=== PATIENT | female | born 2000 | race Caucasian/White ===

== ENCOUNTER 2025-07-19 13:03 | Outpatient (AMB) | payer MEDICAID, SELFPAY ==
[2025-07-19 13:22] VITALS: BP 120/79; PULSE 69; RESP 14; TEMP 36.4; O2SAT 98; BMI 32.9
--- NOTE | 2025-07-19 13:22 | AMB.OBINITIA ---
Vital Signs 07/19/25 13:22 Height 1.6 m Height Method Stated Weight 84.368 kg Weight Measurement Method Standing Scale BMI 32.9 BP 120/79 Blood Pressure Source Automatic Cuff Blood Pressure Location Left Upper Arm Position Sitting Respiration 14 Pulse 69 Pulse Source Monitor Temp 97.6 F Temp Source Oral Pulse Oximetry (%) 98 Oxygen Delivery Method Room Air Allergies/Home Meds Allergies & Medications Allergies NKA* Allergy (Uncoded 07/19/25 13:23) Medication Reconciliation No Known Home Medications 07/19/25 [History Confirmed 07/19/25] Intake Visit Data Collection New Patient or Established: Established Patient (seen at [facility] within 3 years) Reason for Visit:: INITIAL CARE Seen by Clinical Staff ONLY (RN/MA): No Equipment Man Required: No Do You Feel Safe at Home: Yes Authorities Contacted: N/A PCP or OBGYN visit in last 3 months: Yes Hx Now: Yes Are you currently on any form of Control: No Last menstrual period: 02/11/25 Pain Present Currently: No Pain Scale Used: Rodriguez-Brewer/Numerical Pain scale:: 0 Smoking Status Smoking Status: Never smoker Immunizations Flu Vaccine in the Last 12 Months: No Flu Vaccine Exclusion Criteria: No Exclusion Criteria Questionnaires Covid-19 Vaccine Questionnaire Has patient been vacinated for Covid-19 Have you been vacinated for Covid-19: Yes PHQ-9 PHQ-2 Over the last 2 weeks, how often have you been bothered by any of the following problems? 1. Little interest or pleasure in doing things: not at all 2. Feeling down, depressed, or hopeless: not at all Total score: 0 PHQ-9 3. Trouble falling or staying asleep, or sleeping too much: Not at all 4. Feeling tired or having little energy: Not at all 5. Poor appetite or overeating: Not at all 6. Feeling bad about yourself - or that you are a failure or have let yourself or your family down: Not at all 7. Trouble concentrating on things, such as reading the newspaper or watching television: Not at all 8. Moving or speaking so slowly that other people could have noticed? - Or the opposite - being so fidgety or restless that you have been moving around a lot more than usual: not at all 9. Thoughts that you would be better off or of hurting yourself in some way: Not at all Total score: 0 Source: Developed by Drs. Matias Klein, Kimmie Bernstein, Antwan Ayala and colleagues, with an educational russell from [employer]. Depression screen completed yes Social History Living Situation History Marital Status: Lives With: Family Housing: House Tobacco History Smoking Status: Never smoker Second Hand Smoke Exposure: No Alcohol History Alcohol Intake: Former Alcohol Intake Frequency: holidays/special occasions only Domestic Abuse History Do You Feel Safe at Home: Yes History of Present Illness HPI Narrative 25-year-old 1 para 0 for OB transfer. Patient initially was seen in [facility] care. Her first visit was at 8 weeks. Last. February 11, 2025. This gave EDC of November 18, 2025. Patient's first ultrasound was with Dr. Vazquez. Ultrasound May 28, 2025. Patient 12 weeks and 4 days. This changes EDC to December 06, 2025. Patient has not had any problems with the except for some morning sickness. Denies social habits. Denies surgery. Denies chronic illness. She has no complaints. And movement is light. She has labs that were drawn her AFP was negative. NIPT negative. Cystic fibrosis screen was negative and her spinal muscular atrophy was negative. Patient is O+, antibody screen negative, RPR nonreactive, rubella immune, hepatitis B negative, hep C negative, HIV negative, GC and Chlamydia were negative. Urine culture was negative and drug screen negative as well. HEALTH INFORMATION PROVIDER: Past Medical History Past Medical History: No Hx Renal Disease, No Hx Diabetes Mellitus Type 1 and No Hx Diabetes Mellitus Type 2 OB Initial Visit OB Flowsheet OB Flowsheet Initial Weight: Not Recorded Date <del>?</del> EGA Weight BP Alb Glu CTX Pres Fundal ht FHR Mov Dilation Station Effacement Hx Notes Visit Note 07/19/25 <del>?</del> 20w 0d 84.368 kg 120/79 absent unknown 20 145 active 25-year-old 1 para 0 for OB/transfer. Patient initially seen at [facility]. Records are with her. Denies leaking, bleeding, contractions. Reports light movement. Patient scheduled for maternal- medicine sono in 1 week. Discussed SAB precautions. Continue prenatals. Return a week OB check Menstrual History Menstrual reliability: definite Flow: normal Menstrual regularity: regular Monthly: Yes Age at menarche: 10 On control pills at conception: No Associated symptoms (LMP): Reports fatigue OB History : 1 Infection History & Risk Evaluation History of STDs: chlamydia (IN 2019) Genetic Screening & History Genetic Screening/Teratology Counseling - Includes patient, baby's father, or anyone in either family with: 1. Patient's age 35 years or older as of estimated date of delivery: No 2. Thalassemia (Samoan, Cambodian, Mediterranean, or Background); MCV less than 80: No 3. Neural Tube Defect (Meningomyelocele, Spina Bifida, or Anencephaly): No 4. Congenital Heart Defect: No 5. Down Syndrome: No 6. Mateusz-Sachs (Ashkenazi Adventist, Cajun, Beninese Dominican): No 7. Kylee Disease (Ashkenazi Adventist): No 8. Familial Dysautonomia (Ashkenazi Adventist): No 9. Sickle Cell Disease or Trait (): No 10. Hemophilia or other blood disorders: No 11. Muscular Dystrophy: No 12. Cystic Fibrosis: No 13. Calcasieu's Chorea: No 14. Mental Retardation/Autism: No 15. Other inherited genetic or chromosomal disorder: No 16. Maternal Metabolic Disorder (EG,TYPE 1 Diabetes, PKU): No 17. Patient or baby's father had a child with defects not listed above: No 18. Recurrent loss or a stillbirth: No 19. Medications (including supplements, vitamins, herbs or otc drugs)/illicit/recreational drugs/alcohol since last menstrual period: No 20. Any other: No Infection History 1. Live with someone with TB or exposed to TB: No 2. Rash or viral illness since last menstrual period: No 3. Hepatitis B,C: No Other (see comments) Source: [employer] Review of Systems Review of Systems Systems Reviewed: All systems reviewed, normal except as documented Constitutional Constitutional: Reports fatigue Endocrine Endocrine: Reports fatigue Exam General Limitations: no limitations General Appearance: alert, in no apparent distress, comfortable, cooperative, healthy appearing, well developed and well groomed Head Head exam: atraumatic, normocephalic and normal inspection ENT ENT exam: Present normal exam, normal oropharynx and mucous membranes moist Chest Chest inspection: Present normal inspection and symmetric chest wall rise Resp Respiratory exam: Present normal lung sounds bilaterally Card Cardiovascular exam: Present regular rate, normal rhythm and normal heart sounds Abdominal Abdominal exam: Present soft and normal bowel sounds Psych Psychiatric exam: Present normal affect and normal mood Office Procedures OBC Clinic LOC & Office Proc's Nursing/Assessment Patient Status: Established Patient OB Clinic Nursing Assessment: Medication Reconciliation, Update PMH in EMR and Vital Signs OB Clinic Coordination of Care: Complex Care and Chronic Disease 1-5, Consent,records obtained, informed consent, Education Simp Pt/Fam, 1 Ins Authorization, Lab and Imaging orders, Results/Orders obtained and Staff clarify orders Special Needs: Heart tones Established Patient Charge Established Patient Point Assignment: 150 Established Patient Point Charge: EP Level 4 (120-155) Assessment & Plan Diagnosis / Problem List (1) Encounter for supervision of high risk in second trimester, antepartum: Status: Acute Plan Follow-up with maternal- medicine for anatomy scan in a week. Discussed labor precautions. Continue prenatals. Increase fluids. Return in 4 weeks OB check Additional Plan Follow Up: 4 Weeks (obc)
== END 2025-07-19 13:45 | disposition home or self-care (01) ==
PROVIDERS: Supervising Provider Advanced Practice Midwife; Visit Provider Advanced Practice Midwife
DX: O09.92 Supervision of high risk pregnancy, unspecified, second trimester (principal); Z3A.20 20 weeks gestation of pregnancy
CPT/HCPCS: 99214; G0463

== ENCOUNTER 2025-08-17 13:59 | Outpatient (AMB) | payer MEDICAID, SELFPAY ==
--- NOTE | 2025-08-17 14:29 | OBCLNT_ITS ---
Vital Signs 08/17/25 14:30 Height 1.6 m Height Method Stated Weight 87.657 kg Weight Measurement Method Standing Scale BMI 34.2 BP 108/69 Blood Pressure Source Automatic Cuff Blood Pressure Location Right Upper Arm Position Sitting Respiration 18 Pulse 82 Pulse Source Monitor Temp 97.9 F Temp Source Temporal Artery Scan Pulse Oximetry (%) 97 Oxygen Delivery Method Room Air Allergies/Home Meds Allergies & Medications Allergies NKA* Allergy (Uncoded 08/17/25 14:31) Medication Reconciliation No Known Home Medications 07/19/25 [History Confirmed 08/17/25] Immunizations Immunizations Flu Vaccine in the Last 12 Months: No Flu Vaccine Exclusion Criteria: No Exclusion Criteria Care OB Visit Log OB Flowsheet Initial Weight: Not Recorded Date -?-?-?-?-?-?-?-?-?-?-?-?- EGA Weight BP Alb Glu CTX Pres Fundal ht FHR Mov Dilation Station Effacement Hx Notes Visit Note 07/19/25 -?-?-?-?-?-?-?-?-?-?-?-?- 20w 0d 84.368 kg 120/79 absent unknown 20 145 active 25-year-old 1 para 0 for OB/transfer. Patient initially seen at [facility]. Records are with her. Denies leaking, bleeding, contractions. Reports light movement. Patient schedule d for maternal- medicine sono in 1 week. Discussed SAB precautions. Continue prenatals. Return a week OB check 08/17/25 -?-?-?-?-?-?-?-?-?-?-?-?- 24w 1d 87.657 kg 108/69 absent unknown 24 145 active Reports good movement. Denies leaking or bleeding. Denies contractions. Reports good movement. Denies leaking or bleeding. Denies contractions. She is a 3 para 1 complains of severe sciatic pain patient is having difficulty sitting for long periods of time. Patient reports that she has jury duty coming in a week Schedule third trimester labs. Discussed labor precautions. Increase fluids. Continue prenatals. Return in 4 weeks OB check and will do a growth sono at 32 weeks AMMY Calculator Estimated Delivery Date Method Current WG Current Estimate 12/06/25 Ultrasound #1 24w 1d Other Estimates 11/18/25 LMP (Uncertain) 26w 5d 12/06/25 Ultrasound #2 24w 1d 12/06/25 Manual 24w 1d final ammy; 12/06, efw: 62% Notes Visit Date: 07/19/25 Last Updated by: Flor Hong CNM 25 yo . 1st sono at 12w4 on 05/28/25. EDC is 12/06/25. O+,abs-,rpr;;nr, rub imm, hbsag-, hiv-, HC-, GC/CT-, . UA-,UT-, NIPT/AFP and carrier screen- Office Procedures OBC Clinic LOC & Office Proc's Nursing/Assessment Patient Status: Established Patient OB Clinic Nursing Assessment: Medication Reconciliation, Update PMH in EMR and Vital Signs OB Clinic Coordination of Care: Complex Care and Chronic Disease 1-5, Education Complex Pt/Fam, Consent,records obtained, informed consent, Lab and Imaging orders, Results/Orders obtained and Staff clarify orders Special Needs: Heart tones Established Patient Charge Established Patient Point Assignment: 140 Established Patient Point Charge: EP Level 4 (120-155) Assessment & Plan Diagnosis / Problem List (1) Encounter for supervision of high risk in second trimester, antepartum: Status: Acute Plan Comfort measures for sciatic pain. Discussed backache and heat. Third trimester labs given to patient. Discussed labor precautions. Increase fluids. Return in 4 weeks OB check Additional Plan Follow Up: 4 Weeks (obc)
[2025-08-17 14:30] VITALS: BP 108/69; PULSE 82; RESP 18; TEMP 36.6; O2SAT 97; BMI 34.2
== END 2025-08-17 14:52 | disposition home or self-care (01) ==
LOC: HODSOBC 13:59
PROVIDERS: Supervising Provider Advanced Practice Midwife; Visit Provider Advanced Practice Midwife
DX: O09.892 Supervision of other high risk pregnancies, second trimester (principal); O99.891 Other specified diseases and conditions complicating pregnancy; M54.40 Lumbago with sciatica, unspecified side; Z3A.24 24 weeks gestation of pregnancy
CPT/HCPCS: 99214; G0463

== ENCOUNTER → 2025-08-31 | Outpatient (CLI) | payer MEDICAID, SELFPAY ==
[2025-08-31 14:27] LABS: Basophils # (Auto) 0.0 Thou/mm3 (0.0-0.2); Basophils % (Auto) 0 % (0-2.5); Eosinophils # (Auto) 0.1 Thou/mm3 (0.0-0.5); Eosinophils % (Auto) 1 % (0-10); Hematocrit 32.1 % (36.0-46.0); Hemoglobin 10.9 g/dL (12.0-16.0); Immature Granulocytes Auto 0.06 Thou/mm3 (0.00-0.00); Lymphocytes # (Auto) 1.7 Thou/mm3 (1.0-4.8); Lymphocytes % (Auto) 21 % (10-50); Mean Corpuscular HGB Conc 34.0 g/dl (31.0-37.0); Mean Corpuscular Hemoglobin 29.5 pg (25.0-35.0); Mean Corpuscular Volume 87 fL (80-100); Monocytes # (Auto) 0.5 Thou/mm3 (0.0-0.8); Monocytes % (Auto) 6 % (0-12); Neutrophils # (Auto) 5.9 Thou/mm3 (1.8-7.7); Neutrophils % (Auto) 71 % (37-80); Nucleated Red Blood Cell # 0.00 Thou/mm3 (0.00-0.00); Nucleated Red Blood Cell % 0 /100 WBC (0); Platelet Count 269 Thou/mm3 (140-440); RDW Standard Deviation 44.9 fL (36.4-46.3); Red Blood Count 3.69 Miln/mm3 (4.00-5.20); White Blood Count 8.3 Thou/mm3 (3.6-11.0)
[2025-08-31 14:34] LABS: Glucose,1 Hour PP 50gm Dose 111 mg/dL (80-140)
[2025-08-31 14:38] LABS: Glucose Estimated Average 105 mg/dL (80-131); Hemoglobin A1C 5.3 % Hgb (4.8-6.0)
[2025-08-31 15:05] LABS: Syphilis Nonreactive (Nonreactive)
== END | disposition home or self-care (01) ==
LOC: COPL 12:25
PROVIDERS: PCP Family Medicine; Referring Provider Advanced Practice Midwife; Visit Provider Advanced Practice Midwife
DX: Z34.92 Encounter for supervision of normal pregnancy, unspecified, second trimester (principal)
CPT/HCPCS: 36415; 82950; 83036; 85025; 86780